=== PATIENT | female | born 1980 | race Caucasian/White ===

== ENCOUNTER 2018-05-13 10:19 | Emergency (ER) | payer OTHER ==
[~2018-05-13] VITALS: Ht 157.5 cm; Wt 68.0 kg
[2018-05-13] MEDS ORDERED: MIRT15 PO (11:18)
[2018-05-13] MEDS ORDERED: CEPH250 PO (11:18)
[2018-05-13] MEDS ORDERED: BUSP5TAB20 PO (11:18)
[2018-05-13] MEDS ORDERED: ADDE10 PO (11:18)
[2018-05-13] MEDS ORDERED: QUET25TA PO (11:18)
[2018-05-13 13:48] VITALS: BP 131/87
== END 2018-05-13 13:51 | disposition home or self-care (01) ==
LOC: EMS 10:21
DX: F41.9 Anxiety disorder, unspecified (principal)

== ENCOUNTER 2019-01-29 12:35 | Emergency (ER) | payer OTHER ==
[~2019-01-29] VITALS: Ht 157.5 cm; Wt 6.4 kg
[~2019-01-29 12:35] MED LIST: ADDE10 PO; BUSP5TAB20 PO; CEPH250 PO; MIRT15 PO; QUET25TA PO
[2019-01-29 15:30] LABS: GLUCOSE,POINT OF CARE 84 MG/DL (70-110)
[2019-01-29 16:33] VITALS: BP 142/85
== END 2019-01-29 16:40 | disposition home or self-care (01) ==
LOC: EMS 12:38
DX: F41.9 Anxiety disorder, unspecified (principal)